=== PATIENT | female | born 1950 | race Hispanic/Latino ===

== ENCOUNTER 2018-04-02 10:23 | Outpatient (CLI) | payer MEDICARE ==
--- NOTE | 2018-04-03 07:51 | Magnetic Resonance Report ---
MRI UPPER EXTREMITY JOINT RIGHT WITHOUT CONTRAST HISTORY: Right shoulder pain. TECHNIQUE: Multiple T1 and T2-weighted images were obtained with and without fat suppression through the right shoulder. COMPARISON: None at this facility. FINDINGS: A 7 mm full-thickness tear is identified in the distal infraspinatus tendon at its insertion site on the proximal humerus which is best demonstrated on coronal proton density fat sat image 7. A 6 mm full-thickness tear is identified in the distal supraspinatus tendon approximately 1 cm from its insertion site on the proximal humerus which is best demonstrated on coronal proton density fat sat image 10. The subscapularis tendon, teres minor tendon and long head of the biceps tendon are intact and within normal limits. No labral defect or SLAP lesion is identified. There is normal bone marrow signal throughout the osseous structures. No evidence for fracture, dislocation, ligamentous injury or bone lesion. No significant osteoarthritic changes are appreciated for this patient's age. Trace joint effusion and small fluid in the subacromial and subdeltoid bursa are noted. IMPRESSION: Focal full thickness tears in the distal infraspinatus and supraspinatus tendons as described above.
== END 2018-04-02 10:24 | disposition home or self-care (01) ==
LOC: MRI 10:23
PROVIDERS: ATTEND Physical Medicine & Rehabilitation
DX: S46.811A Strain of other muscles, fascia and tendons at shoulder and upper arm level, right arm, initial encounter (principal); M75.101 Unspecified rotator cuff tear or rupture of right shoulder, not specified as traumatic; X58.XXXA Exposure to other specified factors, initial encounter; Y93.89 Activity, other specified; Y92.89 Other specified places as the place of occurrence of the external cause; Y99.8 Other external cause status